=== PATIENT | male | born 1995 | race Caucasian/White ===

== ENCOUNTER 2016-10-07 15:51 | Emergency (ER) | payer BC ==
[2016-10-07 15:57] VITALS: BP 148/77
[2016-10-07] MEDS ORDERED: fentaNYL 100 MCG/2 ML SDV SUBCUT ONE (16:16)
[2016-10-07] MEDS ORDERED: Bacitracin Oint 1 GM U/D Packet TOP ONE (16:56)
[2016-10-07] MEDS ORDERED: Acetaminophen/oxyCODONE 325-5 MG Tab PO ONE ×2 (17:14)
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
[2016-10-07] MEDS ORDERED: Diphtheria,Pertussis(Acell),Tetanus Vaccine 0.5 ML SDV IM ONE (17:27)
== END 2016-10-07 18:00 | disposition home or self-care (01) ==
LOC: LL.ED 15:51
DX: T22.212A Burn of second degree of left forearm, initial encounter (principal); T23.101A Burn of first degree of right hand, unspecified site, initial encounter; F17.210 Nicotine dependence, cigarettes, uncomplicated; X08.8XXA Exposure to other specified smoke, fire and flames, initial encounter
CPT/HCPCS: 90471; 90715; 96372; 99283; A9270; J3010; 16025